=== PATIENT | female | born 1955 | race Caucasian/White ===

== ENCOUNTER → 2019-04-09 | Outpatient (CLI) | payer BC ==
--- NOTE | 2019-04-09 12:59 | CONS ---
CONSULTATION DATE OF SERVICE: 04/09/2019 This 63-year-old lady has been evaluated in the sleep center for obstructive sleep apnea-hypopnea syndrome. HISTORY OF PRESENT ILLNESS/SLEEP-WAKE EVALUATION: The patient had been diagnosed with obstructive sleep apnea about 10 years ago. Since that time, she is on treatment with CPAP. She continued to use equipment every night for the whole night. She increased her weight at about 10 pounds since previous sleep study. Sometimes she wakes up from sleep with a dry mouth. CPAP unit is old. Her sleep schedule usually from 2 a.m. until around 10 a.m. No problems with falling asleep, although she has TV set in bedroom. She usually sleeps on the side position. She may wake up from sleep up to 3 times, but no episodes of nocturia. No history of hypnagogic hallucinations, sleep paralysis or cataplexy. Sometimes she may feel some sleepiness during the day. [place] Sleepiness Scale is 9. PAST MEDICAL HISTORY: Positive for hypertension, hypothyroidism. PAST SURGICAL HISTORY: Cholecystectomy, lap band surgery. REVIEW OF SYSTEMS: Some awakenings from sleep, sometimes sleepiness during the day. FAMILY HISTORY: Hypertension, snoring. PHYSICAL EXAMINATION: During physical exam, lady without distress. VITAL SIGNS: BP 186/72, HR 70, RR 16, height 5 feet 1 inch, weight 234 pounds, body mass index 44.2. Temperature 97.9. Oxygen saturation at room air 99%. HEENT: PERRLA, EOMI. Oropharynx extremely low position of soft palate. Mallampati 4. NECK: 15-1/2 inches in circumference. LUNGS: Clear to percussion and to auscultation. Good air exchange. No wheezing or rhonchi. HEART: S1, S2 regular. No murmurs, gallops, or rubs. ABDOMEN: Obese. EXTREMITIES: No clubbing or cyanosis. FENCE ERECTOR SUPERVISOR: Awake, alert, and oriented X3. Cranial nerves 2 to 7 intact. There is no fasciculation or atrophy. noted. No focal deficits observed. IMPRESSION: 1. Obstructive sleep apnea-hypopnea syndrome for 10 years. Patient continued to use her CPAP equipment at night in good compliance for 8-1/2 hours per night. CPAP pressure in the machine 9 cm of water. Patient wakes up from sleep up to 3 times. Sometimes she feels sleepy during the day. Extremely low position of soft palate, Mallampati 4, obstructive sleep apnea-hypopnea syndrome. 2. Obesity for the last 10 years. Patient increased her weight around 10 pounds. 3. Hypertension. 4. Hyperlipidemia. 5. Status post cholecystectomy. 6. Status post lap band surgery. PLAN: 1. Prescription for new CPAP unit in automatic regimen with the range of the pressure from 5 to 12. 2. Patient will continue to use CPAP equipment every night for the whole night. 3. I will see patient for followup visit in about 5 weeks to evaluate clinical response to treatment, compliance with treatment and make any necessary adjustments. 4. Losing weight. 5. No driving if feeling sleepiness. Thank you very much for referring this patient for evaluation. Sincerely, Garrett Goodman MD, PhD, FAASM Diplomat of [employer] [employer] [employer] Auto Electrician of [facility] [place] [id number] / SUSANN: [id number] /
== END | disposition home or self-care (01) ==
LOC: SLEEP 11:00
PROVIDERS: ATTEND Internal Medicine
DX: G47.33 Obstructive sleep apnea (adult) (pediatric) (principal); E66.9 Obesity, unspecified; I10 Essential (primary) hypertension; E78.5 Hyperlipidemia, unspecified; Z90.49 Acquired absence of other specified parts of digestive tract; Z98.84 Bariatric surgery status; Z99.89 Dependence on other enabling machines and devices; Z68.41 Body mass index [BMI] 40.0-44.9, adult
CPT/HCPCS: 99211

== ENCOUNTER → 2020-09-02 | Outpatient (CLI) | payer BC ==
--- NOTE | 2020-09-03 08:42 | SFUN ---
SLEEP CENTER FOLLOW UP NOTE DATE OF SERVICE: 09/02/2020 INTERVAL HISTORY: This is a 65-year-old lady who has been followed in Sleep Center for treatment of obstructive sleep apnea-hypopnea syndrome. Patient continued to use her CPAP equipment every night. No snoring with the machine. Recently she changed her mask from 1 type of nasal pillow to another type of nasal pillow, AirFit N30I which has connected with the tube on the upper part of the head and patient feel more comfortable with this type of mask. [place] Sleepiness Scale today is 6. I checked the patient's CPAP unit. Pressure is in the range 5-12 cm of water. Average 11 cm of water. Usage is 30/30 nights for more than 4 hours. Leak is 14 L/minute which is acceptable. Apnea-hypopnea index is 4.2. The patient feels sometimes that the pressure is not enough for her and she thinks that 5 is a little too low. MEDICATIONS: Lisinopril 20/25 mg once a day, metoprolol 25 mg once a day, pravastatin 20 mg once a day, omeprazole 20 mg once a day. PHYSICAL EXAMINATION: GENERAL: Patient in no distress. VITAL SIGNS: BP 139/64, HR 78, RR 15, height 5 feet 1 inch, weight 228.6, temperature 97.4, oxygen saturation at room air 97%. HEENT: PERRLA, EOMI, evaluation of oropharynx showed tongue protrudes midline. Oropharynx low position of soft palate, Mallampati IV. NECK: Supple, no JVD. Thyroid is not palpable. LUNGS: Clear to percussion and to auscultation. Good air exchange. No wheezing or rhonchi. HEART: S1, S2 regular. No murmurs, gallops, or rubs. ABDOMEN: Obese, soft and nontender. Bowel sounds are present. No organomegaly appreciated. EXTREMITIES: No clubbing or cyanosis. CERTIFIED WELDER: Awake, alert, and oriented X3. Cranial nerves 2 to 7 intact. There is no fasciculation or atrophy. noted. No focal deficits observed. IMPRESSION: 1. Obstructive sleep apnea-hypopnea syndrome. Patient demonstrated 100% compliance with treatment benefitting from treatment. 2. Obesity. 3. Hypertension. 4. Hyperlipidemia. 5. Status post cholecystectomy. 6. Status post lap band surgery. PLAN: PLAN 1. Patient will continue to use PAP equipment every night for the whole night. I changed regimen in the machine to a minimal 6 cm of water with keeping maximal 12 cm of water. 2. Sleep hygiene with regular time in bed for at least 7-1/2 to 8 hours. 3. Precautions related to driving. No driving if feeling sleepiness. 4. I will maintain all necessary prescription for PAP supplies including mask, tube, filters. 5. Watching weight. 6. Follow-up visit in 6 months or earlier if patient has any problems. 7. Prescription for nasal pillow mask AirFit N30I small size and all necessary supplies including tubes and filters. Thank you very much for allowing me to participate in the management of your patient. Sincerely, Garrett Goodman MD, PhD, FAASM Diplomat of [place] [employer] Sleep Medicine Board of [place] [employer] Medicine Food Service Agent of [facility] [place] [id number] / SUSANN: [id number] /
== END ==
LOC: SLEEP 14:11
PROVIDERS: ATTEND Internal Medicine
DX: G47.33 Obstructive sleep apnea (adult) (pediatric) (principal); E66.9 Obesity, unspecified; I10 Essential (primary) hypertension; E78.5 Hyperlipidemia, unspecified; Z90.49 Acquired absence of other specified parts of digestive tract; Z98.84 Bariatric surgery status; Z79.899 Other long term (current) drug therapy; Z88.1 Allergy status to other antibiotic agents; Z88.5 Allergy status to narcotic agent; Z91.09 Other allergy status, other than to drugs and biological substances

== ENCOUNTER 2022-01-20 06:19 | Day surgery (SDC) | payer MEDICARE, BC ==
[2022-01-18 10:57] VITALS: BMI 42.5
[2022-01-20] MEDS ORDERED: LACTATED RINGERS 1,000 ML IV SCH (06:24)
[2022-01-20 06:47] VITALS: TEMP 98
[2022-01-20] MEDS ORDERED: MIDAZOLAM 2 MG/2 ML VIAL ONE (07:21)
[2022-01-20] MEDS ORDERED: LIDOCAINE 2% INJ 20 MG/ML (2 ML VIAL) ONE (07:21)
[2022-01-20] MEDS ORDERED: PROPOFOL 10 MG/ML 20 ML VIAL IV ONE (07:21)
--- NOTE | 2022-01-20 07:47 | P.PCN ---
Date of Procedure: 01/20/22 Procedure(s) Performed: Brief history: Patient is a pleasant 66-year-old white female scheduled for an elective upper endoscopy as well as colonoscopy as a part of evaluation of GERD and screening for colon cancer. She has history of gastric lap band surgery done several years ago. Procedure performed: Esophagogastroduodenoscopy with biopsy Colonoscopy Preoperative diagnosis: GERD Screening for colon cancer Anesthesia: MAC Procedure: After informed consent was obtained from the patient was brought into the endoscopy unit and IV sedation was administered by anesthesia under continuous monitoring. Initially upper endoscopy was done. The Olympus GF 160 video endoscope was inserted inserted into the mouth and esophagus intubated without any difficulty and was gradually advanced into the stomach and duodenum and carefully examined. The bulb and second part of the duodenum appeared normal. The scope was then withdrawn into the stomach adequately insufflated with air and upon careful examination the antrum and body, cardia and fundus appeared normal. Small gastric polyps noted which were biopsied. The scope was then withdrawn into the esophagus. The GE junction was located at 37 cm to the incisors. It appeared regular with no erythema erosions or ulcerations. Rest of the esophagus appeared normal. Patient tolerated the procedure well. At this time the patient continued to remain sedation. Initial digital rectal examination was normal. Olympus CF 160 video colonoscope was then inserted into the rectum and gradually advanced to the cecum without any difficulty. Careful examination was performed as the scope was gradually being withdrawn. The prep was excellent. The cecum, ascending colon, transverse colon, descending colon, sigmoid colon and rectum appeared normal. Retroflexion was performed in the rectum and no lesions were noted. Scattered sigmoid diverticulosis. Patient tolerated the procedure well. Impression: 1. Upper endoscopy revealed small gastric polyps but no evidence of esophagitis or Purcell's esophagus 2. Colonoscopy was within normal limits with no evidence of colorectal neoplasia Recommendations: Findings of this examination were discussed with the patient as well as her family. She was advised to follow with the biopsy results. Continue with with omeprazole 20 mg daily and follow antireflux measures. Recommend repeat screening colonoscopy in 10 years.
[2022-01-20] MEDS ORDERED: ONDANSETRON 4 MG/2 ML VIAL ONE (08:00)
[2022-01-20] MEDS ORDERED: ONDANSETRON 4 MG/2 ML VIAL IVP ONE (08:02)
[2022-01-20 08:20] VITALS: BP 151/72; PULSE 68; RESP 16
== END 2022-01-20 08:35 | disposition home or self-care (01) ==
LOC: ORWHC2ENDO 06:19
PROVIDERS: ATTEND Internal Medicine Gastroenterology
DX: Z12.11 Encounter for screening for malignant neoplasm of colon (principal); K57.30 Diverticulosis of large intestine without perforation or abscess without bleeding; K21.9 Gastro-esophageal reflux disease without esophagitis; K31.7 Polyp of stomach and duodenum
CPT/HCPCS: 88305; 88342; 88341; 43239; J2250; J2405; J2704; J2001; G0121

== ENCOUNTER 2022-03-15 08:11 | Day surgery (SDC) | payer MEDICARE, BC ==
[2022-03-10 15:12] VITALS: BMI 42.7
[~2022-03-15 08:11] MED LIST: LACTATED RINGERS 1,000 ML IV SCH; LIDOCAINE 1% (10MG/ML) FOR IV START INTRADERMA PRN; ONDANSETRON 4 MG/2 ML VIAL IVP PRN
[2022-03-15 09:21] VITALS: RESP 16; TEMP 97
[2022-03-15] MEDS ORDERED: PROPOFOL 10 MG/ML 20 ML VIAL IV ONE (10:09)
--- NOTE | 2022-03-15 10:24 | P.PCN ---
Date of Procedure: 03/15/22 Procedure(s) Performed: BRIEF HISTORY: Patient is a 66-year-old, pleasant, at female scheduled for an upper endoscopy as a part of follow-up of gastric carcinoid that was diagnosed on routine upper endoscopy in January 2022. She had upper endoscopy done for evaluation of long-standing history of GERD and was noted to have small gastric polyps and one of the polyp biopsy revealed gastric carcinoid. She is scheduled for a follow-up upper endoscopy today. She'll be symptomatic.. PROCEDURE PERFORMED: Esophagogastroduodenoscopy with biopsy and snare polypectomy. PREOPERATIVE DIAGNOSIS: Follow-up gastric carcinoid. IV sedation per anesthesia. PROCEDURE: After informed consent was obtained, the patient was brought into the endoscopy unit. IV sedation was administered by Anesthesia under continuous monitoring. Initially the Olympus GIF-140 video endoscope was inserted into the mouth. Esophagus intubated without any difficulty. It was gradually advanced into the stomach and duodenum and carefully examined. The bulb and the second part of the duodenum appeared normal. The scope at this time was withdrawn to the stomach, adequately insufflated with air, and upon careful examination, mucosa of the antrum, appeared normal. In the mid body of the stomach there was a 5 mm submucosal polyp that was removed by snare polypectomy. There were several small gastric polyps measuring 2-3 mm in size in the gastric body that was biopsied. Rest of the body, cardia and the fundus appeared normal. The scope was then withdrawn into the esophagus. The GE junction was located at 39 cm from the incisors. The esophagus appeared normal. There were no erosions or ulcerations seen and the patient tolerated the procedure well. IMPRESSION: 1. 5 mm small submucosal polyp in the mid body of the stomach status post snare polypectomy. 2. Multiple small 2-3 mm mucosal polyps in the body the stomach status post biopsy. RECOMMENDATIONS: The findings of this examination were discussed with the patient as well as a family. She was advised to follow with the biopsy results. Based the biopsy results will plan a repeat upper endoscopy in 1 year..
[2022-03-15 10:47] VITALS: BP 115/68; PULSE 56
== END 2022-03-15 11:00 | disposition home or self-care (01) ==
LOC: ORWHC2ENDO 08:11
PROVIDERS: ATTEND Internal Medicine Gastroenterology
DX: K29.50 Unspecified chronic gastritis without bleeding (principal); K31.7 Polyp of stomach and duodenum; I10 Essential (primary) hypertension; E78.5 Hyperlipidemia, unspecified; K21.9 Gastro-esophageal reflux disease without esophagitis; K91.0 Vomiting following gastrointestinal surgery; Z88.1 Allergy status to other antibiotic agents; Z91.048 Other nonmedicinal substance allergy status; Z88.5 Allergy status to narcotic agent; Z98.890 Other specified postprocedural states; Z79.899 Other long term (current) drug therapy
CPT/HCPCS: 88305; 43239; 43251; J2704

== ENCOUNTER → 2022-11-08 | Outpatient (CLI) | payer MEDICARE, BC ==
--- NOTE | 2022-11-08 17:34 | P.PN ---
Subjective DATE: 11/08/2022 FOLLOW UP VISIT. Patient with obstructive sleep apnea hypopnea syndrome return to sleep center for follow-up visit. Information from previous visit have been reviewed. Patient is using PAP equipment every night for the whole night, getting PAP supplies in time. The patient does not have significant problems with the mask, PAP unit and humidification. [place] sleepiness scale is 5, which is normal. I checked information from PAP unit. PAP unit pressure 8-13, average 11.2 cm H2O. Usage is 90 % for more then 4 hours, average 8 hours per night. Leak is 19 l/m, which is in acceptable range. Apnea Hypopnea Index is 4.6, which is normal. MEDICATIONS:1. Omeprazole 20 mg once a day 2. Metoprolol 25 mg twice a day 3. Lisinopril/hydrochlorothiazide 20-25 mg once a day 4. Pravastatin 20 mg once a day During physical exam: GENERAL: A pleasant patient without any distress. VITAL SIGNS: BP 140/80, HR 65, RR 16 , weight 222.4, temperature 98.9, oxygen saturation at room air 98 % . HEENT: PERRLA, EOMI.low position of soft palate, Mallapati 4 . NECK: Supple. No JVD. LUNGS: Clear to percussion and to auscultation. Good air exchange. No wheezing or rhonchi. HEART: S1, S2 regular. ABDOMEN: Soft and nontender. Obese EXTREMITIES: No clubbing or cyanosis. ASSEMBLY MACHINE OFFBEARER: Awake, alert, and oriented x3. No focal deficit. Impressions: 1. Obstructive sleep apnea-hypopnea syndrome. Patient demonstrated great compliance with treatment, benefiting from treatment. 2. Hypertension. 3. Hyperlipidemia. 4. Obesity, BMI 42.6. 5. Status post lap band surgery. 6. Status post cholecystectomy. Plan: 1. Continue using PAP equipment every night for the whole night. 2. To change air filter at least 1-2 times per month. 3. PAP unit should stay lower then position of the head. 4. Advised patient to remove all remaining water from humidifier canister daily and make it dry after each usage. Refill canister with fresh distilled water before each usage. 5. Sleep hygiene with regular time in bed for at least 8 hours. 6. Precautions related to driving. No driving if feel any sleepiness. 7. I will maintain prescription for PAP supplies including mask, tube, filters. 8. Watching and losing weight. 9. Follow up visit in 6 months or earlier if patient has any problems. Thank you very much for allowing me to participate in the management of your patient. Garrett Goodman MD, PhD, FAASM. Diplomat of [place] [employer] Medicine, Sleep Medicine Board by [place] [employer] Return Clerk of [facility] [place]
== END ==
LOC: 3 N SLEEP 13:19
PROVIDERS: ATTEND Internal Medicine
DX: G47.33 Obstructive sleep apnea (adult) (pediatric) (principal); I10 Essential (primary) hypertension; E78.5 Hyperlipidemia, unspecified; E66.9 Obesity, unspecified; Z98.890 Other specified postprocedural states; Z68.41 Body mass index [BMI] 40.0-44.9, adult; Z79.899 Other long term (current) drug therapy; Z90.49 Acquired absence of other specified parts of digestive tract; Z98.84 Bariatric surgery status; Z99.89 Dependence on other enabling machines and devices; Z91.048 Other nonmedicinal substance allergy status; Z88.1 Allergy status to other antibiotic agents; Z88.8 Allergy status to other drugs, medicaments and biological substances
CPT/HCPCS: 99212

== ENCOUNTER 2023-01-23 09:04 | Day surgery (SDC) | payer MEDICARE, BC ==
[2023-01-19 11:17] VITALS: BMI 41.5
[~2023-01-23 09:04] MED LIST changes: -LIDOCAINE 1% (10MG/ML) FOR IV START INTRADERMA PRN; -ONDANSETRON 4 MG/2 ML VIAL IVP PRN
[2023-01-23 09:51] VITALS: RESP 16; TEMP 98.2
[2023-01-23] MEDS ORDERED: PROPOFOL 10 MG/ML 20 ML VIAL IV ONE (09:52)
[2023-01-23] MEDS ORDERED: LIDOCAINE 1% INJ 10MG/ML (20 ML MDV) ONE (09:52)
--- NOTE | 2023-01-23 10:04 | P.PCN ---
Date of Procedure: 01/23/23 Procedure(s) Performed: BRIEF HISTORY: Patient is a 67-year-old, pleasant, White female scheduled for an upper endoscopy as a part of follow-up of gastric carcinoid diagnosis in January 2022. She is scheduled for a follow-up upper endoscopy today.. PROCEDURE PERFORMED: Esophagogastroduodenoscopy with biopsy and snare polypectomy. PREOPERATIVE DIAGNOSIS: Follow-up gastric carcinoid. IV sedation per anesthesia. PROCEDURE: After informed consent was obtained, the patient was brought into the endoscopy unit. IV sedation was administered by Anesthesia under continuous monitoring. Initially the Olympus GIF-140 video endoscope was inserted into the mouth. Esophagus intubated without any difficulty. It was gradually advanced into the stomach and duodenum and carefully examined. The bulb and the second part of the duodenum appeared normal. The scope at this time was withdrawn to the stomach, adequately insufflated with air, and upon careful examination, mucosa of the antrum, a normal. In the gastric body there were several small 2- 3 mm gastric polyps identified which were biopsied. However there was one 7-8 mm mucosal nodule noted in the mid body the stomach which was removed by snare polypectomy. Rest of the body, cardia and the fundus appeared normal. The scope was then withdrawn into the esophagus. The GE junction was located at 39 cm from the incisors. The esophagus appeared normal. There were no erosions or ulcerations seen and the patient tolerated the procedure well. IMPRESSION: 1. 7 to 8 mm submucosal nodule in the mid body the stomach status post snare polypectomy. 2. Multiple small gastric polyps in the gastric body status post biopsy. RECOMMENDATIONS: The findings of this examination were discussed with the patient as well as her family. She was advised to follow with the biopsy results and will plan a repeat upper endoscopy in 1 year..
[2023-01-23] MEDS ORDERED: ONDANSETRON 4 MG/2 ML VIAL ONE (10:22)
[2023-01-23] MEDS ORDERED: ONDANSETRON 4 MG/2 ML VIAL IVP ONE (10:25)
[2023-01-23 11:03] VITALS: BP 115/74; PULSE 55
== END 2023-01-23 11:03 | disposition home or self-care (01) ==
LOC: ORWHC2ENDO 09:04
PROVIDERS: ATTEND Internal Medicine Gastroenterology
DX: K31.7 Polyp of stomach and duodenum (principal); I10 Essential (primary) hypertension; E78.5 Hyperlipidemia, unspecified; G47.33 Obstructive sleep apnea (adult) (pediatric); Z79.899 Other long term (current) drug therapy; Z85.030 Personal history of malignant carcinoid tumor of large intestine; Z87.890 Personal history of sex reassignment
CPT/HCPCS: 88305; 43239; 43251; J2405; J2001; J2704

== ENCOUNTER → 2023-05-16 | Outpatient (CLI) | payer MEDICARE, BC ==
[2023-05-16 14:02] VITALS: BP 136/74; PULSE 72; RESP 16; TEMP 97.9
--- NOTE | 2023-05-16 15:33 | P.PN ---
Subjective DATE: 05/16/2023 FOLLOW UP VISIT. Patient with obstructive sleep apnea hypopnea syndrome return to sleep center for follow-up visit. Information from previous visit have been reviewed. Patient is using PAP equipment every night for the whole night, getting PAP supplies in time. The patient does not have significant problems with the mask, PAP unit and humidification. [place] sleepiness scale is 5, which is normal. I checked information from PAP unit. PAP unit pressure 8-13, average 11.7 cm H2O. Usage is 100% for more then 4 hours, average 8.8 hours per night. Leak is 13 l/m, which is in acceptable range. Apnea Hypopnea Index is slightly increased to 5.3. MEDICATIONS:1. Pravastatin 20 mg once a day 2. Metoprolol 25 mg once a day 3. Lisinoprilhydrochlorothiazide 10-25 mg once a day 4. Nexium 20 mg once a day During physical exam: GENERAL: A pleasant patient without any distress. VITAL SIGNS: Please see below, body mass index 43.9. HEENT: PERRLA, EOMI.low position of soft palate, Mallapati 4 . NECK: Supple. No JVD. LUNGS: Clear to percussion and to auscultation. Good air exchange. No wheezing or rhonchi. HEART: S1, S2 regular. ABDOMEN: Soft and nontender.[] EXTREMITIES: No clubbing or cyanosis. COURTESY BOOTH CASHIER: Awake, alert, and oriented x3. No focal deficit. Impressions: 1. Obstructive sleep apnea-hypopnea syndrome. Patient demonstrated great compliance with treatment, benefiting from treatment. 2. Obesity, BMI 43.9, patient increased weight on 7 pounds complaining with a previous visit. 3. Hypertension. 4. Hyperlipidemia. 5. Status post lap band surgery. 6. Status post cholecystectomy. I slightly increased CPAP unit pressure to the range 8 to 14 cm of water. Plan: 1. Continue using PAP equipment every night for the whole night. 2. To change air filter at least 1-2 times per month. 3. PAP unit should stay lower then position of the head. 4. Advised patient to remove all remaining water from humidifier canister daily and make it dry after each usage. Refill canister with fresh distilled water before each usage. 5. Sleep hygiene with regular time in bed for at least 8 hours. 6. Precautions related to driving. No driving if feel any sleepiness. 7. I will maintain prescription for PAP supplies including mask, tube, filters. 8. Follow up visit in 6 months or earlier if patient has any problems. 9. Watching and losing weight. Thank you very much for allowing me to participate in the management of your patient. Garrett Goodman MD, PhD, FAASM. Diplomat of [place] Board [employer] Sleep Medicine, Sleep Medicine Board by [place] [employer] Medicine [employer] Of [employer]eds of [facility] [place] Objective - Vital Signs Vital signs: Vital Signs Temp 97.9 F 05/16/23 13:50 Pulse 72 05/16/23 13:50 Resp 16 05/16/23 13:50 BP 136/74 05/16/23 13:50 Pulse Ox 97 05/16/23 13:50 FiO2 Intake & Output 05/15/23 05/16/23 05/16/23 18:59 06:59 18:59 Weight 103.873 kg
== END ==
LOC: 3 N SLEEP 13:24
PROVIDERS: ATTEND Internal Medicine
DX: G47.33 Obstructive sleep apnea (adult) (pediatric) (principal); E66.9 Obesity, unspecified; I10 Essential (primary) hypertension; E78.5 Hyperlipidemia, unspecified; Z98.84 Bariatric surgery status; Z90.49 Acquired absence of other specified parts of digestive tract; Z98.890 Other specified postprocedural states; Z99.89 Dependence on other enabling machines and devices; Z68.41 Body mass index [BMI] 40.0-44.9, adult; Z79.899 Other long term (current) drug therapy; Z88.1 Allergy status to other antibiotic agents; Z91.09 Other allergy status, other than to drugs and biological substances; Z88.5 Allergy status to narcotic agent; Z91.048 Other nonmedicinal substance allergy status
CPT/HCPCS: 99212

== ENCOUNTER → 2023-11-28 | Outpatient (CLI) | payer MEDICARE, BC ==
[2023-11-28 13:13] VITALS: BP 148/67; PULSE 68; RESP 16; TEMP 98.1
--- NOTE | 2023-11-28 13:43 | P.PROGSL ---
Subjective DATE: 11/28/2023 FOLLOW UP VISIT. Patient with obstructive sleep apnea hypopnea syndrome return to sleep center for follow-up visit. Information from previous visit have been reviewed. Patient is using PAP equipment every night for the whole night, getting PAP supplies in time. The patient does not have significant problems with the mask, PAP unit and humidification. [place] sleepiness scale is 7, which is normal. I checked information from PAP unit. PAP unit pressure 8-14, average 11.3 cm H2O. Usage is 100% for more then 4 hours, average 8.6 hours per night. Leak is 12 l/m, which is in acceptable range. Apnea Hypopnea Index is 0.6, which is normal. MEDICATIONS have been reviewed, please see below. During physical exam: GENERAL: A pleasant patient without any distress. VITAL SIGNS: Please see below, weight is 225 lbs. HEENT: PERRLA, EOMI.low position of soft palate, Mallapati 4. NECK: Supple. No JVD. LUNGS: Clear to percussion and to auscultation. Good air exchange. No wheezing or rhonchi. HEART: S1, S2 regular. ABDOMEN: Soft and nontender. Slightly obese EXTREMITIES: No clubbing or cyanosis. EDUCATIONAL AIDE: Awake, alert, and oriented x3. No focal deficit. Impressions: 1. Obstructive sleep apnea-hypopnea syndrome. Patient demonstrated great compliance with treatment, benefiting from treatment. 2. Obesity, BMI 43.2. 3. Hypertension. 4. Hyperlipidemia. 5. Status post lap band surgery. 6. Status post cholecystectomy. Plan: 1. Continue using PAP equipment every night for the whole night. 2. Sleep hygiene with regular time in bed for at least 7.5-8 hours 3. PAP unit should stay lower then position of the head. 4. Advised patient to remove all remaining water from humidifier canister daily and make it dry after each usage. Refill canister with fresh distilled water before each usage. 5. Watching and losing weight. 6. Precautions related to driving. No driving if feel any sleepiness. 7. I will maintain prescription for PAP supplies including mask, tube, filters. 8. Follow up visit in 6 months or earlier if patient has any problems. Thank you very much for allowing me to participate in the management of your patient. Garrett Goodman MD, PhD, FAASM. Diplomat of [place] [employer] Sleep Medicine, Sleep Medicine Board by [place] [employer] Medicine Office Receptionist of [facility] [place] Objective - Vital Signs Vital Signs: Vital Signs Temp 98.1 F 11/28/23 13:12 Pulse 68 11/28/23 13:12 Resp 16 11/28/23 13:12 BP 148/67 11/28/23 13:12 Pulse Ox 98 11/28/23 13:12 FiO2 Intake & Output 11/27/23 11/28/23 11/28/23 18:59 06:59 18:59 Weight 102.058 kg Home Medications: Home Medications Medication Instructions Recorded Confirmed Type Calcium Carbonate/Vitamin D3 1 each PO DAILY 04/23/15 01/19/23 History [Calcium 600 + Vit D Tablet] Lisinopril-Hctz 20-25 mg 1 tab PO BID 04/23/15 11/28/23 History [Zestoretic 20-25] Metoprolol Succinate (ER) [Toprol 25 mg PO BID 04/23/15 11/28/23 History Xl] Multivitamins, Thera [Multivitamin] 1 tab PO DAILY 04/23/15 11/28/23 History [place]-3 Fatty Acids/Fish Oil [Fish 1 each PO DAILY 04/23/15 11/28/23 History Oil 1,000 mg Softgel] Omeprazole [PriLOSEC] 20 - 40 mg PO [id number] 04/23/15 01/19/23 History Pravastatin Sodium [Pravachol] 20 mg PO HS 04/23/15 11/28/23 History Ubidecarenone [Co Q-10] 100 mg PO HS 04/23/15 11/28/23 History
== END ==
LOC: 3 N SLEEP 13:03
PROVIDERS: ATTEND Internal Medicine
CPT/HCPCS: 99212

== ENCOUNTER → 2024-01-29 | Day surgery (SDC) | payer MEDICARE, BC ==
[~2024-01-29] MED LIST changes: -LACTATED RINGERS 1,000 ML IV SCH; +LIDOCAINE 1% INJ 10MG/ML (20 ML MDV) ONE; +PROPOFOL 10 MG/ML 20 ML VIAL IV ONE
[2024-01-29 08:12] VITALS: RESP 16; TEMP 97
[2024-01-29] MEDS: LACTATED RINGERS 1,000 ML IV SCH (08:19)
[2024-01-29] MEDS: IV FLUID CONTINUATION 1,000 ML IV ONE (08:19)
[2024-01-29] MEDS: ONDANSETRON 4 MG/2 ML VIAL IVP STA (08:40)
--- NOTE | 2024-01-29 09:33 | P.PCN ---
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 Upper endoscopy revealed 5 to 6 mm gastric polyp that was removed and biopsies revealed well-differentiated neuroendocrine tumor. She had a repeat upper endoscopy a year ago in January 2023 which revealed small gastric polyps but no evidence of gastric carcinoid. She is scheduled for a follow-up upper endoscopy today. She is asymptomatic.. PROCEDURE PERFORMED: Esophagogastroduodenoscopy with biopsy. 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 IV sedation per anesthesia. PROCEDURE: After informed consent was obtained, the patient was brought into the endoscopy unit. IV sedation was administered by Anesthesia under continuous monitoring. Initially the Olympus GIF-140 video endoscope was inserted into the mouth. Esophagus intubated without any difficulty. It was gradually advanced into the stomach and duodenum and carefully examined. The bulb and the second part of the duodenum appeared normal. The scope at this time was withdrawn to the stomach, adequately insufflated with air, and upon careful examination, mucosa of the antrum appeared normal. In the gastric body there were several small gastric polyps measuring about 2 to 3 mm in size noted. There was one 5 mm submucosal polyp noted in the distal body of the stomach which was extensive ly biopsied. Rest of the, body, cardia and the fundus appeared normal. The scope was then withdrawn into the esophagus. Sliding-type hiatal hernia noted. The GE junction was located at 39 cm from the incisors. The esophagus appeared normal. There were no erosions or ulcerations seen and the patient tolerated the procedure well. IMPRESSION: 1. 4 to 5 mm submucosal polyp in the distal body of the stomach status post multiple biopsies 2. Small gastric mucosal polyps. 3. Small sliding-type hiatal hernia RECOMMENDATIONS: The findings of this examination were discussed with the patient as well as her family. She was advised to follow with the biopsy results. She will be seen in the office in 2 to 3 weeks. Based on the biopsy results we will decide on a repeat upper endoscopy in 1 year..
[2024-01-29 09:53] VITALS: BP 138/84; PULSE 62
== END ==
LOC: ORWHC2ENDO 07:47
PROVIDERS: ATTEND Internal Medicine Gastroenterology
DX: K31.7 Polyp of stomach and duodenum (principal); K44.9 Diaphragmatic hernia without obstruction or gangrene; K21.9 Gastro-esophageal reflux disease without esophagitis; I10 Essential (primary) hypertension; E78.5 Hyperlipidemia, unspecified; G47.33 Obstructive sleep apnea (adult) (pediatric); Z79.899 Other long term (current) drug therapy; Z90.49 Acquired absence of other specified parts of digestive tract; Z98.84 Bariatric surgery status; Z88.5 Allergy status to narcotic agent
CPT/HCPCS: 88305; 43239; J2405; J2003; J2704

== ENCOUNTER → 2024-07-30 | Outpatient (CLI) | payer MEDICARE, BC ==
[2024-07-30 13:17] VITALS: BP 155/82; PULSE 68; RESP 16; TEMP 98
--- NOTE | 2024-07-30 13:45 | P.PROGSL ---
Subjective DATE: 07/30/2024 FOLLOW UP VISIT. Patient with obstructive sleep apnea hypopnea syndrome return to sleep center for follow-up visit. This is first visit after patient received new CPAP unit. Information from previous visit have been reviewed. Patient is using PAP equipment every night for the whole night, getting PAP supplies in time. The patient does not have significant problems with the mask, PAP unit and humidification. [place] sleepiness scale is 8, which is normal. I checked information from PAP unit. PAP unit pressure 8-14, average 11 cm H2O. Usage is 98% for more then 4 hours, average 8.6 hours per night. Leak is 14 l/m, which is in acceptable range. Apnea Hypopnea Index is 0.7, which is perfect. MEDICATIONS have been reviewed, please see below. During physical exam: GENERAL: A pleasant patient without any distress. VITAL SIGNS: Please see below, weight is 227 lbs. HEENT: PERRLA, EOMI.low position of soft palate, [place] 4 . NECK: Supple. No JVD. LUNGS: Clear to percussion and to auscultation. Good air exchange. No wheezing or rhonchi. HEART: S1, S2 regular. ABDOMEN: Soft and nontender. Slightly obese EXTREMITIES: No clubbing or cyanosis. QUOTE CLERK: Awake, alert, and oriented x3. No focal deficit. Impressions: 1. Obstructive sleep apnea-hypopnea syndrome. Patient demonstrated great compliance with treatment, benefiting from treatment. 2. Obesity, BMI 44.1. 3. Hypertension. 4. Hyperlipidemia. 5. Status post cholecystectomy. 6. Status post lap band surgery. Plan: 1. Continue using PAP equipment every night for the whole night. 2. Sleep hygiene with regular time in bed for at least 7.5-8 hours 3. PAP unit should stay lower then position of the head. 4. Advised patient to remove all remaining water from humidifier canister daily and make it dry after each usage. Refill canister with fresh distilled water before each usage. 5. Watching weight. 6. Precautions related to driving. No driving if feel any sleepiness. 7. I will maintain prescription for PAP supplies including mask, tube, filters. 8. Follow up visit in 8 months or earlier if patient has any problems. Thank you very much for allowing me to participate in the management of your patient. Garrett Goodman MD, PhD, FAASM. Diplomat of [employer], Sleep Medicine Board by [employer] [facility] [place] Objective - Vital Signs Vital Signs: Vital Signs Temp 98 F 07/30/24 13:16 Pulse 68 07/30/24 13:16 Resp 16 07/30/24 13:16 BP 155/82 07/30/24 13:16 Pulse Ox 97 07/30/24 13:16 FiO2 Intake & Output 07/29/24 07/30/24 07/30/24 18:59 06:59 18:59 Weight 102.965 kg Home Medications: Home Medications Medication Instructions Recorded Confirmed Type Calcium Carbonate/Vitamin D3 1 each PO DAILY 04/23/15 01/24/24 History [Calcium 600 + Vit D Tablet] Lisinopril-Hctz 20-25 mg 1 tab PO DAILY 04/23/15 07/30/24 History [Zestoretic 20-25] Metoprolol Succinate (ER) [Toprol 25 mg PO BID 04/23/15 07/30/24 History Xl] Multivitamins, Thera [Multivitamin] 1 tab PO DAILY 04/23/15 01/24/24 History Kopperl-3 Fatty Acids/Fish Oil [Fish 1 each PO DAILY 04/23/15 01/24/24 History Oil 1,000 mg Softgel] Pravastatin Sodium [Pravachol] 20 mg PO HS 04/23/15 07/30/24 History Ubidecarenone [Co Q-10] 100 mg PO HS 04/23/15 01/24/24 History Esomeprazole Magnesium [NexIUM] 20 - 40 mg PO DAILY 01/24/24 07/30/24 History
== END ==
LOC: 3 N SLEEP 12:56
PROVIDERS: ATTEND Internal Medicine
DX: G47.33 Obstructive sleep apnea (adult) (pediatric) (principal); E66.9 Obesity, unspecified; I10 Essential (primary) hypertension; E78.5 Hyperlipidemia, unspecified; Z90.49 Acquired absence of other specified parts of digestive tract; Z98.890 Other specified postprocedural states; Z99.89 Dependence on other enabling machines and devices; Z68.41 Body mass index [BMI] 40.0-44.9, adult; Z88.5 Allergy status to narcotic agent; Z88.1 Allergy status to other antibiotic agents; Z91.048 Other nonmedicinal substance allergy status
CPT/HCPCS: 99212